=== PATIENT | female | born 1980 | race Caucasian/White ===

== ENCOUNTER 2017-06-30 08:33 | Emergency (ER) | payer OTHER ==
[~2017-06-30] VITALS: Ht 172.7 cm; Wt 106.1 kg
[2017-06-30 08:44] VITALS: Ht 172.7 cm; Wt 106.1 kg
[2017-06-30 09:46] VITALS: BP 120/86
== END 2017-06-30 08:44 | disposition home or self-care (01) ==
LOC: ED 08:33
DX: K04.7 Periapical abscess without sinus (principal); K08.89 Other specified disorders of teeth and supporting structures; R22.0 Localized swelling, mass and lump, head
CPT/HCPCS: J0558; J1885